=== PATIENT | female | born 1950 | race Caucasian/White ===

== ENCOUNTER → 2016-07-17 | Day surgery (SDC) | payer MEDICARE, BC ==
[~2016-07-17] MED LIST: ANEXSIA 7.5/3251 TA1 PO; BACLOFEN10 MG PO; BACLOFEN20 M1 PO; BENTYL10 MG PO; KLONOPIN PO; LISINOPRIL-HCTZ1 T14 PO; MOBIC15 MG PO; VERAMYST10 GM
--- NOTE | ~2016-07-17 | OR ---
Unit #: [id number] #: [id number] Patient: BO JULIAN [id number] [address] [address] [id number] O MR#: [id number] NAME: BO JULIAN. ROOM: Date of Procedure: 07/17/2016 Admission Date: 07/17/2016 Surgeon: Louie Rankin M.D. : 1950 Attending Physician: Louie Rankin M.D. Primary Care Physician: Ivanna Quintana Aprn OPERATIVE REPORT PREOPERATIVE DIAGNOSES 1. Postlaminectomy syndrome. 2. Lumbar spinal stenosis. 3. Degenerative lumbar disk disease with myelopathy. 4. Back pain. 5. Radiculopathy. POSTOPERATIVE DIAGNOSES 1. Postlaminectomy syndrome. 2. Lumbar spinal stenosis. 3. Degenerative lumbar disk disease with myelopathy. 4. Back pain. 5. Radiculopathy. PROCEDURE PERFORMED Lumbar epidural steroid injection with fluoroscopic guidance for needle localization. INDICATIONS FOR PROCEDURE The patient is a 65-year-old female with return of worsening back and lower extremity pain. She is status post L5-S1 laminectomy. She has chronic radicular pains in S1 distribution as well as significant adjacent level disease especially at L4-L5 and severe facet disease at L3 through S1. She is treated medically with p.r.n. epidural steroid injections. Last injection was done in 11/2015. She did well for 7 or 8 months with those injections. This is fairly a typical timeframe for her. Based on history, pathology, symptomatology, and treatment options, we are going to proceed with a repeat epidural steroid injection today. DESCRIPTION OF PROCEDURE The patient was placed in a seated position. Standard monitors were applied. Sterile prep and drape then of the lumbar area was performed. The skin at the right of midline at the L4 level was localized with 1% lidocaine. An 18-gauge Wooshii needle was then advanced via right paramedian approach and loss of resistance technique in toward the epidural space. The patient did not complain of pain or paresthesia during needle advancement. After confirming proper positioning with fluoroscopy and radiographic contrast, a dose of 80 mg of Depo-Medrol and 4 mL of 0.125% bupivacaine were deposited. The patient tolerated the procedure otherwise well and was discharged to the recovery room in stable condition. Unit #: [id number] #: [id number] Patient: BO JULIAN Dictated by... Keshav Orta/lewis TD: 07/18/2016 00:45 JOB #: [id number] OPERATIVE REPORT Page 1 of 1 X Louie Rankin MD X PROCEDURE OPERATIVE NOTE
== END | disposition home or self-care (01) ==
LOC: CCSC 09:26
DX: M96.1 Postlaminectomy syndrome, not elsewhere classified (principal); M51.06 Intervertebral disc disorders with myelopathy, lumbar region; M51.16 Intervertebral disc disorders with radiculopathy, lumbar region; M48.06 Spinal stenosis, lumbar region
CPT/HCPCS: J1040; J2250

== ENCOUNTER → 2016-07-24 | Day surgery (SDC) | payer MEDICARE, BC ==
--- NOTE | ~2016-07-24 | OR ---
Unit #: [id number] #: [id number] Patient: BO JULIAN [id number] [address] [address] [id number] O MR#: [id number] NAME: BO JULIAN ROOM: Date of Procedure: 07/24/2016 Admission Date: 07/24/2016 Surgeon: Louie Rankin M.D. : 1950 Attending Physician: Louie Rankin M.D. OPERATIVE REPORT PREOPERATIVE DIAGNOSES Back pain, radiculopathy, post-laminectomy, spinal stenosis, degenerative disk disease. POSTOPERATIVE DIAGNOSES Back pain, radiculopathy, post-laminectomy, spinal stenosis, degenerative disk disease. PROCEDURE PERFORMED Lumbar epidural steroid injection with intravenous sedation and fluoroscopic guidance for needle localization. INDICATIONS FOR PROCEDURE The patient is a 65-year-old female, who presented with return of back greater than bilateral lower extremity pain due to previously mentioned diagnosis. She did very well about a year ago with epidural steroids for almost 10 months. She had resurgence of symptoms. Repeat injection resulted about 50% settling of her symptom complex and not back to the prior baseline, so we proceeded with a second injection today. It is extremely difficult technically. We are going to proceed with a paramedian approach today. DESCRIPTION OF PROCEDURE The patient was placed in a seated position. Standard monitors were applied. 2 mg of Versed were given for sedation and anxiolysis, which were adequate. Vital signs remained stable. Sterile prep and drape then of lumbar area was performed. The skin at the right of midline at the L4 level was localized with 1% lidocaine. An 18-gauge Admittedlytead needle was then advanced via right paramedian approach and loss of resistance technique in toward the epidural space. After confirming proper needle tip positioning with fluoroscopy and radiographic contrast, 80 mg of Depo-Medrol and 4 mL of 0.125% bupivacaine were deposited. The patient tolerated the procedure otherwise well and was discharged to the recovery room in stable condition. Dictated by... Louie Rankin M.D. LHP/modl Unit #: [id number] #: [id number] Patient: BO JULIAN TD: 07/24/2016 23:57 JOB #: [id number] OPERATIVE REPORT Page 1 of 1 X Louie Rankin MD X PROCEDURE OPERATIVE NOTE
== END | disposition home or self-care (01) ==
LOC: CCSC 09:30
DX: M51.16 Intervertebral disc disorders with radiculopathy, lumbar region (principal); M48.06 Spinal stenosis, lumbar region; I10 Essential (primary) hypertension; M19.90 Unspecified osteoarthritis, unspecified site; Z98.890 Other specified postprocedural states
CPT/HCPCS: J1040; J2250

== ENCOUNTER → 2016-07-31 | Day surgery (SDC) | payer MEDICARE, BC ==
--- NOTE | ~2016-07-31 | OR ---
Unit #: [id number] #: [id number] Patient: BO JULIAN [id number] [address] [address] [id number] O MR#: [id number] NAME: BO JULIAN. ROOM: Date of Procedure: 07/31/2016 Admission Date: 07/31/2016 Surgeon: Louie Rankin M.D. : 1950 Attending Physician: Louie Rankin M.D. Primary Care Physician: Generic Doctor Not In System OPERATIVE REPORT JOB NOTE: CC: [facility]. PREOPERATIVE DIAGNOSES Back pain, radiculopathy, degenerative disk disease, post laminectomy syndrome, spinal stenosis. POSTOPERATIVE DIAGNOSES Back pain, radiculopathy, degenerative disk disease, post laminectomy syndrome, spinal stenosis. PROCEDURE PERFORMED Lumbar epidural steroid injection with fluoroscopic guidance for needle localization. INDICATIONS FOR PROCEDURE The patient is a 65-year-old female, who returned with back and bilateral lower extremity pain due to previously mentioned diagnosis. She has chronic radiculopathy at L5-S1 level, in addition to multilevel multifactorial degenerative changes. Epidural steroid injection in the past helped it for about 8 to 9 months. She had resurgence of the pain, started injections and repeated to this point over the last month or so. She has adequate improvement. She did not yet back down to the prior baseline that she had been. We are going to proceed with what should be a final injection at this point. DESCRIPTION OF PROCEDURE The patient was placed in a seated position. Standard monitors were applied. Sterile prep and drape then of the lumbar area was performed. The skin then to the right of midline at the L4 level was localized with 1% lidocaine. An 18-gauge [employer] needle was then advanced via right paramedian approach and loss of resistance technique in toward the epidural space. The patient did not complain of any pain or paresthesia during needle advancement. After confirming proper positioning with fluoroscopy and radiographic contrast, 80 mg of Depo-Medrol and 4 mL of 0.125% bupivacaine were deposited. The patient tolerated the procedure otherwise well and was discharged to recovery room in stable condition. Dictated by... Louie Rankin M.D. Unit #: [id number] #: [id number] Patient: JULIANBO/pamellal TD: 08/01/2016 05:56 JOB #: [id number] OPERATIVE REPORT Page 1 of 1 X Louie Rankin MD X PROCEDURE OPERATIVE NOTE
== END | disposition home or self-care (01) ==
LOC: CCSC 09:27
DX: M51.16 Intervertebral disc disorders with radiculopathy, lumbar region (principal); M96.1 Postlaminectomy syndrome, not elsewhere classified; M48.06 Spinal stenosis, lumbar region
CPT/HCPCS: J1040; J2250